=== PATIENT | male | born 1935 | race Caucasian/White ===

== ENCOUNTER 2024-05-20 18:58 | Emergency (ER) | payer OTHER, SELFPAY ==
[2024-05-20 19:05] VITALS: BP 149/89
[2024-05-20 19:36] LABS: % Basophils 0.6 % (0-2); % Eosinophils 4.4 % (0-6); % Immature Granulocytes 1.1 % (0-0.5); % Lymphocytes 18.4 % (20.5-51.1); % Monocytes 7.2 % (1.7-9.3); % Neutrophils 68.3 % (42.2-75.2); Absolute Basophils 0.1 10^3/uL (0-0.2); Absolute Eosinophils 0.4 10^3/uL (0-0.7); Absolute Immature Granulocytes 0.1 10^3/uL (0-0.05); Absolute Lymphocytes 1.8 10^3/uL (1.2-3.4); Absolute Monocytes 0.7 10^3/uL (0.1-0.6); Absolute Neutrophils 6.8 10^3/uL (1.4-6.5); Hematocrit 43.9 % (39.0-52.0); Hemoglobin 16.4 g/dL (13.0-18.0); Mean Corp Hgb Conc. 37.4 g/dL (33.0-37.0); Mean Corpuscular Hgb 33.8 pg (27.0-31.0); Mean Corpuscular Volume 90.5 fL (80.0-94.0); Mean Platelet Volume 9.4 fL (7.4-10.4); Nucleated Red Blood Cells % 0 % (-); Platelet Count 176 10^3/uL (130-400); Red Blood Cell Count 4.85 10^6/uL (4.70-6.10); Red Cell Dist. Width 12.2 % (11.5-14.5); White Blood Cell Count 9.9 10^3/uL (4.8-10.8)
[2024-05-20 19:51] LABS: COVID-19 Antigen Negative (Negative)
[2024-05-20 20:16] LABS: ALT (SGPT) 40 U/L (0-50); AST (SGOT) 47 U/L (17-59); Albumin 4.3 g/dl (3.5-5.0); Alkaline Phosphatase 64 U/L (38-126); Blood Urea Nitrogen 19 mg/dl (9-20); Calcium 9.4 mg/dl (8.4-10.2); Carbon Dioxide 28 mmol/L (22-30); Chloride 101 mmol/L (98-107); Glucose 110 mg/dl (70-99); Potassium 3.4 mmol/L (3.5-5.1); Sodium 137 mmol/L (135-145); Total Bilirubin 1.5 mg/dl (0.2-1.3); eGFR 58.89
--- NOTE | 2024-05-20 20:43 | ED.GENMED ---
History of Present Illness
General
Chief Complaint: Cold/Flu/URI Symptoms
Source: patient
Exam Limitations: none
Time Seen by Provider: 05/20/24 20:37
History of Present Illness
History of Present Illness:
Cough for 10 days. Some green sputum. No chest pain or pleuritic pain no shortness of breath. Patient is anticoagulated for atrial fibrillation. Symptoms are mild to moderate but ongoing in nature. No one else is ill at home. No unusual travel
history.
Past History
Past History
ED Past Medical History: Arrthythmia, HTN and Hypothyroidism
ED Past Surgical History: Cholecystectomy and Other
Review of Systems
Review of Systems
All Other Systems: Not applicable
Constitutional: Denies fever or chills
Respiratory: Denies trouble breathing
Cardiac: Denies palpitations or syncope
Phy Exam
Physical Exam
Physical Exam:
GENERAL: Alert and oriented in no apparent distress. Initially sitting in the chair nontoxic
EYE: Orbits normal.
NECK: Supple. Speech normal
CARDIAC: Regular rate and rhythm without any obvious murmurs.
LUNGS: Clear breath sounds,normal. No cough noted while in the room
ABDOMEN: Soft, without focal tenderness or distention
NEUROLOGICAL: Alert and oriented , grossly non-focal
SKIN: Warm and dry, multiple areas of keratosis
MUSCULOSKELETAL: No edema,no deformity.Good color
PSYCH: Normal and appropriate interaction.
Course
Orders/Labs/Results
Orders:
Orders
05/20/24 19:10
CXR2 [CR Chest - 2 Views ] Urgent
Comment:
Reason For Exam: cough
05/20/24 19:18
CMP [Comprehensive Metabolic Panel] Urgent
COVID-19 Antigen Urgent
Source: Nasal Swab
Complete Blood Count/With Diff Urgent
Influenza A+B Rapid Molecular Urgent
ISABEL Source: Nasal Swab
Specimen Description:
05/20/24 22:31
Doxycycline [Vibramycin] 100 mg PO NOW STA
Abnormal Lab Results
05/20/24
19:18
MCH 33.8 H pg
(27.0-31.0)
MCHC 37.4 H g/dL
(33.0-37.0)
Abs Immat Gran (auto) 0.1 H 10^3/uL
(0-0.05)
Absolute Neuts (auto) 6.8 H 10^3/uL
(1.4-6.5)
Absolute Monos (auto) 0.7 H 10^3/uL
(0.1-0.6)
Immature Gran % 1.1 H %
(0-0.5)
Lymphocytes % 18.4 L %
(20.5-51.1)
Potassium 3.4 L mmol/L
(3.5-5.1)
Glucose 110 H mg/dl
(70-99)
Total Bilirubin 1.5 H mg/dl
(0.2-1.3)
05/20/24 19:18
05/20/24 19:18
Vital Signs
Initial and Last Documented VS:
Initial Vital Signs
Temp Pulse Resp BP Pulse Ox
98.4 F 79 18 149/89 96
05/20/24 19:05 05/20/24 19:05 05/20/24 19:05 05/20/24 19:05 05/20/24 19:05
Last Documented Vital Signs
Temp Pulse Resp BP Pulse Ox
98.4 F 72 16 144/78 97
05/20/24 19:05 05/20/24 22:54 05/20/24 22:54 05/20/24 22:54 05/20/24 22:54
MDM/Problems Addressed
Differential Diagnosis Includes:
Cough. He is on a hypertensive med that could cause cough however it would not be usually with green sputum. He is nontoxic he is in no respiratory distress. Highly doubt pulmonary emboli given no shortness of breath or pleuritic pain and he is
on anticoagulation. Chest x-ray pending.
*Radiology
Radiology exam reviewed: preliminary read by ED provider (Questionable small retrocardiac infiltrate)
*Pulse Oximetry
Patient hypoxic: no
*Critical Care Note
Total Time (30-74mins, 75-104mins- exclusive of procedures): Not Applicable
Update Note
Update Note:
Patient nontoxic in no distress. Questionable small retrocardiac infiltrate. Will cover with antibiotics to follow-up
ED Attending Note
-
Portions of this chart may have been created with voice recognition software.� Occasional wrong word or��sound alike� substitutions may have occurred due to the inherent limitations of voice recognition software.
Discharge Plan
Departure
Patient Disposition: Home (Routine Discharge)
Date of Disposition: 05/20/24
Time of Disposition: 22:33
Patient with high blood pressure during this ER visit?: Yes
Discharge Problem:
Persistent cough, Possible small infiltrate
Instructions: Cough, Adult ED, BLOOD PRESSURE
Prescriptions:
New
doxycycline hyclate 100 mg capsule
100 mg PO BID 10 Days Qty: 20 0RF
Referrals:
Stanley Chun DO [Family Provider] -
Interventions
Interventions:
*Risk Screen - Suicide Last Done: 05/20/24 21:24
*General Assessment Last Done: 05/20/24 21:24
*Neglect/Abuse Screening Last Done: 05/20/24 21:24
*ED COVID-19 Vaccine History Last Done: 05/20/24 21:24
*Nursing Disposition Last Done: 05/20/24 22:55
ED- Pulmonary Assessment Last Done: 05/20/24 21:24
Discharge Date and Time
Discharge Date/Time: 05/20/24 22:56
Print Language: KOSOVAN
[2024-05-20] MEDS: VIBRAMYCIN 100 MG PO (22:47)
[2024-05-20 22:54] VITALS: BP 144/78
== END 2024-05-20 22:56 | disposition home or self-care (01) ==
LOC: EMR 18:58
PROVIDERS: EMERGENCY PHYSICIAN Emergency Medicine; FAMILY PHYSICIAN Family Medicine
DX: R05.9 Cough, unspecified (principal); Z11.52 Encounter for screening for COVID-19; I10 Essential (primary) hypertension; E03.9 Hypothyroidism, unspecified; I48.91 Unspecified atrial fibrillation; Z90.49 Acquired absence of other specified parts of digestive tract; Z79.01 Long term (current) use of anticoagulants
CPT/HCPCS: 99283; 71046; 80053; 85025; 87502; 87811

== ENCOUNTER 2025-03-17 07:23 | Outpatient (RCR) | payer OTHER, SELFPAY | END 2025-03-17 23:59 | disposition home or self-care (01) | LOC: RPT 07:23 | PROVIDERS: ATTENDING PHYSICIAN Orthopaedic Surgery Hand Surgery; FAMILY PHYSICIAN Family Medicine | DX: M25.511 Pain in right shoulder (principal); Z73.6 Limitation of activities due to disability | CPT/HCPCS: 97010; 97110; 97162 ==

== ENCOUNTER 2025-03-21 07:14 | Outpatient (RCR) | payer OTHER, SELFPAY | END 2025-03-21 09:43 | disposition home or self-care (01) | LOC: RPT 07:14 | PROVIDERS: ATTENDING PHYSICIAN Orthopaedic Surgery Hand Surgery; FAMILY PHYSICIAN Family Medicine | DX: M25.511 Pain in right shoulder (principal); Z73.6 Limitation of activities due to disability | CPT/HCPCS: 97010; 97110 ==